=== PATIENT | male | born 1945 | race Caucasian/White ===

== ENCOUNTER 2019-07-06 21:33 | Inpatient (IN) ==
[2019-07-06] MEDS ORDERED: Ipratropium/Albuterol Neb 3 ML IH ONE (21:44)
[2019-07-06 22:15] LABS: Basophils % 0.2 %; Eosinophils # 0.1 K/mcL (0.0-0.6); Eosinophils % 1.1 %; Hematocrit 42.1 % (37.5-50.1); Hemoglobin 14.4 g/dL (12.9-16.9); Immature Granulocytes % 0.6 % (0-4); Lymphocytes # 0.7 K/mcL (0.6-4.6); Lymphocytes % 7.5 %; Mean Corpuscular HGB Conc 34.2 g/dL (31.6-35.5); Mean Corpuscular Hemoglobin 29.9 pg (28.0-33.3); Mean Corpuscular Volume 87.5 fL (83.0-100.0); Mean Platelet Volume 11.3 fL (9.4-12.4); Monocytes # 0.2 K/mcL (0.0-1.3); Monocytes % 1.7 %; Platelet Count 168 K/mcL (140-400); Red Blood Count 4.81 M/mcL (4.19-5.50); Segmented Neutrophils % 88.9 %
[2019-07-06 22:34] LABS: BUN/Creatinine Ratio 22 (6-26); Blood Urea Nitrogen 23 mg/dL (8-23); Calcium 9.5 mg/dL (8.6-10.3); Carbon Dioxide 22 mEq/L (23-29); Chloride 97 mEq/L (98-107); Glucose 185 mg/dL (70-105); Osmolality,Calculated 288 (280-300); Potassium 4.2 mEq/L (3.5-5.1); Sodium 135 mEq/L (136-145); eGFR For African Americans > 60 (> 60); eGFR For Non-African Americans > 60 (> 60)
[2019-07-06 22:35] LABS: Troponin I 0.03 ng/mL (< 0.04)
[2019-07-06] MEDS ORDERED: Isovue-370 500 ML BOTTLE IVP ONE (22:35)
[2019-07-06] MEDS ORDERED: cefTRIAXone 2,000 MG in Water for inj. (sterile) 20 ML IVP ONE (23:06)
[2019-07-06] MEDS ORDERED: Azithromycin 500 MG in D5% in Water 250 ML IVPB ONE (23:06)
[2019-07-07] MEDS ORDERED: Naloxone 0.4 MG/ML INJ IVP PRN (05:04)
[2019-07-07 05:24] LABS: Hematocrit 39.8 % (37.5-50.1); Hemoglobin 13.6 g/dL (12.9-16.9); Mean Corpuscular HGB Conc 34.2 g/dL (31.6-35.5); Mean Corpuscular Hemoglobin 29.9 pg (28.0-33.3); Mean Corpuscular Volume 87.5 fL (83.0-100.0); Mean Platelet Volume 11.3 fL (9.4-12.4); Platelet Count 173 K/mcL (140-400); Red Blood Count 4.55 M/mcL (4.19-5.50)
[2019-07-07 05:26] LABS: White Blood Count 14.9 K/mcL (4.3-11.1)
[2019-07-07 05:44] LABS: BUN/Creatinine Ratio 24 (6-26); Blood Urea Nitrogen 30 mg/dL (8-23); Calcium 9.4 mg/dL (8.6-10.3); Carbon Dioxide 23 mEq/L (23-29); Chloride 98 mEq/L (98-107); Glucose 225 mg/dL (70-105); Osmolality,Calculated 289 (280-300); Potassium 4.4 mEq/L (3.5-5.1); Sodium 133 mEq/L (136-145); eGFR For African Americans > 60 (> 60); eGFR For Non-African Americans 56 (> 60)
[2019-07-07] MEDS ORDERED: *HR* Heparin 5,000 UNIT/ML VIAL IVP ONE (06:23)
[2019-07-07] MEDS ORDERED: *HR* Heparin 5,000 UNIT/ML VIAL IVP PRN (06:23)
[2019-07-07 06:47] LABS: Hematocrit 38.9 % (37.5-50.1); Hemoglobin 13.2 g/dL (12.9-16.9); Mean Corpuscular HGB Conc 33.9 g/dL (31.6-35.5); Mean Corpuscular Hemoglobin 29.7 pg (28.0-33.3); Mean Corpuscular Volume 87.4 fL (83.0-100.0); Mean Platelet Volume 11.3 fL (9.4-12.4); Platelet Count 170 K/mcL (140-400); Red Blood Count 4.45 M/mcL (4.19-5.50); White Blood Count 15.4 K/mcL (4.3-11.1)
[2019-07-07 06:56] LABS: INR 1.2; Prothrombin Time 13.3 Seconds (9.4-12.1)
[2019-07-07] MEDS ORDERED: *HR* Dextrose 50 % in Water (Syg) 50 ML SYRINGE IVP PRN (07:32)
[2019-07-07] MEDS ORDERED: D5% in Water 1,000 ML IVC PRN (07:32)
[2019-07-07] MEDS ORDERED: Dextrose Gel 15 GM/37.5 ML TUBE PO PRN ×2 (07:32)
[2019-07-07] MEDS: Heparin 25,000 UNIT/250 ML D5W 25,000 UNIT/250 ML IV.SOLN IVC SCH (07:43)
[2019-07-07] MEDS ORDERED: Clindamycin 600 MG/50 ML 600 MG/50 ML IV.SOLN IVPB SCH (08:00)
[2019-07-07] MEDS ORDERED: Ringers Solution, Lactated 500 ML IVC ONE (13:33)
[2019-07-07] MEDS ORDERED: Aspirin 81 MG TAB.CHEW PO STA (13:41)
[2019-07-07] MEDS: Insulin LISPRO 300 UNITS/3 ML VIAL SQ SCH ×2 (13:59→17:43)
[2019-07-07] MEDS: Ampicillin/Sulbactam 3,000 MG in 0.9 % Sodium Chloride 100 ML IVPB SCH ×2 (14:00→18:03)
[2019-07-07] MEDS ORDERED: Acetaminophen 325 MG TABLET PO PRN (15:52)
[2019-07-07] MEDS ORDERED: Acetaminophen 325 MG TABLET PO SCH (16:00)
[2019-07-07] MEDS ORDERED: Cefepime HCl 2,000 MG in Water for inj. (sterile) 20 ML IVP SCH (18:00)
[2019-07-07] MEDS: *HR* Heparin 5,000 UNIT/ML VIAL IVP PRN (20:34)
[2019-07-08] MEDS: Insulin LISPRO 300 UNITS/3 ML VIAL SQ SCH ×5 (00:55→23:50)
[2019-07-08] MEDS: Ampicillin/Sulbactam 3,000 MG in 0.9 % Sodium Chloride 100 ML IVPB SCH ×4 (00:55→18:27)
[2019-07-08] MEDS: Aspirin 81 MG TAB.CHEW PO SCH (09:44)
[2019-07-08] MEDS: Metoprolol XL (24 HR) Succ 50 MG TAB.ER.24H PO SCH (09:45)
[2019-07-08 11:10] LABS: Hematocrit 30.9 % (37.5-50.1); Mean Corpuscular HGB Conc 34.3 g/dL (31.6-35.5); Mean Corpuscular Volume 87.5 fL (83.0-100.0); Platelet Count 133 K/mcL (140-400); Red Blood Count 3.53 M/mcL (4.19-5.50); Red Cell Distribution Width 14.6 % (11.5-14.5); White Blood Count 14.8 K/mcL (4.3-11.1)
[2019-07-08 11:13] LABS: Hemoglobin 10.6 g/dL (12.9-16.9)
[2019-07-08 11:32] LABS: Calcium 8.9 mg/dL (8.6-10.3); Magnesium 1.4 mg/dL (1.6-2.6); Potassium 5.1 mEq/L (3.5-5.1)
[2019-07-08 11:42] LABS: Troponin I 0.1 ng/mL (< 0.04)
[2019-07-08] MEDS: *HR* Heparin 5,000 UNIT/ML VIAL IVP PRN (12:52)
[2019-07-08] MEDS: Heparin 25,000 UNIT/250 ML D5W 25,000 UNIT/250 ML IV.SOLN IVC SCH (13:26)
[2019-07-09] MEDS: Insulin LISPRO 300 UNITS/3 ML VIAL SQ SCH ×3 (05:57→17:22)
[2019-07-09] MEDS: Heparin 25,000 UNIT/250 ML D5W 25,000 UNIT/250 ML IV.SOLN IVC SCH (05:58)
[2019-07-09] MEDS ORDERED: Ampicillin/Sulbactam 3,000 MG in 0.9 % Sodium Chloride 100 ML IVPB SCH (06:00)
[2019-07-09] MEDS ORDERED: 0.9 % Sodium Chloride 1,000 ML IVC ONE (08:10)
[2019-07-09] MEDS: Aspirin 81 MG TAB.CHEW PO SCH (08:45)
[2019-07-09] MEDS: Metoprolol XL (24 HR) Succ 50 MG TAB.ER.24H PO SCH (08:45)
[2019-07-09 09:27] LABS: Hematocrit 33.6 % (37.5-50.1); Hemoglobin 11.4 g/dL (12.9-16.9); Mean Corpuscular HGB Conc 33.9 g/dL (31.6-35.5); Mean Corpuscular Hemoglobin 29.8 pg (28.0-33.3); Mean Corpuscular Volume 87.7 fL (83.0-100.0); Platelet Count 127 K/mcL (140-400); Red Blood Count 3.83 M/mcL (4.19-5.50); Red Cell Distribution Width 14.5 % (11.5-14.5); White Blood Count 13.4 K/mcL (4.3-11.1)
[2019-07-09 09:40] LABS: Calcium 9.5 mg/dL (8.6-10.3); Potassium 5.3 mEq/L (3.5-5.1)
[2019-07-09] MEDS: 0.9 % Sodium Chloride 1,000 ML IVC SCH ×2 (11:23→22:37)
[2019-07-09 12:50] LABS: Bilirubin,Urine Negative (Negative); Blood,Urine Trace (Negative); Clarity,Urine Clear (Clear); Color,Urine Yellow (Yellow); Glucose,Urine (UA) 100 mg/dL (Normal); Ketones,Urine Negative (Negative); Leukocyte Esterase,Urine Negative (Negative); Nitrite,Urine Negative (Negative); PH,Urine 7.5 pH Units (5.0-8.0); Protein,Urine 100 mg/dL (Neg-Trace); Urobilinogen,Urine Normal (Normal)
[2019-07-09 12:53] LABS: Bacteria,Urine None Seen per hpf (None-Few); Hyaline Casts,Urine None Seen per lpf (None-Few); Squamous Epithelial Cell,Urine Many per lpf (None-Few); WBC,Urine 0-3 per hpf (0-3)
[2019-07-09 13:33] LABS: Albumin 3.6 g/dL (3.5-5.7); Albumin/Globulin Ratio 1.3 (1.1-2.2); Bilirubin,Direct 0.1 mg/dL (0.0-0.2); Bilirubin,Indirect 0.3 mg/dL (0.0-1.0); Bilirubin,Total 0.4 mg/dL (0.3-1.0); Globulin 2.7 g/dL (2.4-3.5); Total Protein 6.3 g/dL (6.4-8.9)
[2019-07-09 13:37] LABS: Sodium, Urine 97.1 mEq/L
[2019-07-09 15:14] LABS: Protein/Creatinine Ratio,Urine 2.9 mg/mg (0.00-0.20)
[2019-07-09 15:35] LABS: Potassium 5.3 mEq/L (3.5-5.1)
[2019-07-09] MEDS: *HR* Heparin 5,000 UNIT/ML VIAL SQ SCH (17:23)
[2019-07-10] MEDS: Insulin LISPRO 300 UNITS/3 ML VIAL SQ SCH ×5 (00:08→20:57)
[2019-07-10 04:31] LABS: Hematocrit 28.5 % (37.5-50.1); Mean Corpuscular HGB Conc 33.7 g/dL (31.6-35.5); Mean Corpuscular Hemoglobin 29.6 pg (28.0-33.3); Mean Platelet Volume 11.5 fL (9.4-12.4); Platelet Count 109 K/mcL (140-400); Red Blood Count 3.24 M/mcL (4.19-5.50); Red Cell Distribution Width 14.4 % (11.5-14.5); White Blood Count 8.3 K/mcL (4.3-11.1)
[2019-07-10 04:33] LABS: Hemoglobin 9.6 g/dL (12.9-16.9)
[2019-07-10 04:51] LABS: Calcium 8.8 mg/dL (8.6-10.3); Magnesium 2.3 mg/dL (1.6-2.6); Potassium 5.5 mEq/L (3.5-5.1)
[2019-07-10] MEDS: *HR* Heparin 5,000 UNIT/ML VIAL SQ SCH ×2 (05:38→18:48)
[2019-07-10] MEDS ORDERED: Ampicillin/Sulbactam 3,000 MG in 0.9 % Sodium Chloride Mini Bag 100 ML IVPB SCH (06:00)
[2019-07-10 08:38] LABS: Hepatitis B Surface Antibody > 850.00 mIU/mL
[2019-07-10 08:48] LABS: Hepatitis B Surface Antigen Nonreactive (Nonreactive)
[2019-07-10] MEDS: 0.9 % Sodium Chloride 1,000 ML IVC SCH (08:52)
[2019-07-10] MEDS: Metoprolol XL (24 HR) Succ 50 MG TAB.ER.24H PO SCH (08:53)
[2019-07-10] MEDS: Aspirin 81 MG TAB.CHEW PO SCH (08:53)
[2019-07-10 09:18] LABS: Hepatitis B Core IgM Nonreactive (Nonreactive)
[2019-07-10] MEDS ORDERED: 0.9 % Sodium Chloride 250 ML IVC PRN (10:14)
[2019-07-10] MEDS ORDERED: *HR* Heparin 10,000 UNIT/10 ML VIAL IV PRN (10:14)
[2019-07-10] MEDS ORDERED: 0.9 % Sodium Chloride 1,000 ML PRIME SCH (10:15)
[2019-07-10] MEDS ORDERED: *HR* Heparin 5,000 UNIT/ML VIAL ONE (10:49)
[2019-07-10] MEDS: Amoxicillin/Clavulanate 500 MG TABLET PO SCH (18:49)
[2019-07-11] MEDS: *HR* Heparin 5,000 UNIT/ML VIAL SQ SCH ×2 (05:08→17:29)
[2019-07-11 05:09] LABS: Basophils % 0.4 %; Eosinophils # 0.2 K/mcL (0.0-0.6); Eosinophils % 3.2 %; Hematocrit 30.5 % (37.5-50.1); Hemoglobin 10.4 g/dL (12.9-16.9); Immature Granulocytes % 0.9 % (0-4); Lymphocytes # 0.9 K/mcL (0.6-4.6); Lymphocytes % 15.4 %; Mean Corpuscular HGB Conc 34.1 g/dL (31.6-35.5); Mean Corpuscular Hemoglobin 30.1 pg (28.0-33.3); Mean Corpuscular Volume 88.2 fL (83.0-100.0); Mean Platelet Volume 11.4 fL (9.4-12.4); Monocytes # 0.4 K/mcL (0.0-1.3); Monocytes % 7.9 %; Platelet Count 105 K/mcL (140-400); Red Blood Count 3.46 M/mcL (4.19-5.50); Red Cell Distribution Width 14.2 % (11.5-14.5); Segmented Neutrophils % 72.2 %; White Blood Count 5.6 K/mcL (4.3-11.1)
[2019-07-11 05:28] LABS: Calcium 8.9 mg/dL (8.6-10.3); Potassium 5.1 mEq/L (3.5-5.1)
[2019-07-11] MEDS ORDERED: 0.9 % Sodium Chloride 250 ML IVC PRN (07:09)
[2019-07-11] MEDS: Metoprolol XL (24 HR) Succ 50 MG TAB.ER.24H PO SCH (08:33)
[2019-07-11] MEDS: Aspirin 81 MG TAB.CHEW PO SCH (08:33)
[2019-07-11] MEDS: Insulin LISPRO 300 UNITS/3 ML VIAL SQ SCH ×4 (08:35→22:11)
[2019-07-11] MEDS: Amoxicillin/Clavulanate 500 MG TABLET PO SCH (17:29)
[2019-07-12 04:32] LABS: Basophils % 0.3 %; Eosinophils # 0.2 K/mcL (0.0-0.6); Eosinophils % 2.9 %; Hematocrit 31.1 % (37.5-50.1); Hemoglobin 10.1 g/dL (12.9-16.9); Immature Granulocytes % 1.7 % (0-4); Lymphocytes # 1.2 K/mcL (0.6-4.6); Lymphocytes % 18.6 %; Mean Corpuscular HGB Conc 32.5 g/dL (31.6-35.5); Mean Corpuscular Hemoglobin 29.4 pg (28.0-33.3); Mean Corpuscular Volume 90.7 fL (83.0-100.0); Mean Platelet Volume 12.1 fL (9.4-12.4); Monocytes # 0.5 K/mcL (0.0-1.3); Monocytes % 7.9 %; Neutrophils # 4.3 K/mcL (1.6-8.9); Platelet Count 125 K/mcL (140-400); Red Blood Count 3.43 M/mcL (4.19-5.50); Red Cell Distribution Width 13.8 % (11.5-14.5); Segmented Neutrophils % 68.6 %; White Blood Count 6.3 K/mcL (4.3-11.1)
[2019-07-12 04:51] LABS: Potassium 4.3 mEq/L (3.5-5.1)
[2019-07-12] MEDS: *HR* Heparin 5,000 UNIT/ML VIAL SQ SCH ×2 (05:56→17:12)
[2019-07-12] MEDS: Metoprolol XL (24 HR) Succ 50 MG TAB.ER.24H PO SCH (08:40)
[2019-07-12] MEDS: Insulin LISPRO 300 UNITS/3 ML VIAL SQ SCH ×4 (08:40→20:45)
[2019-07-12] MEDS: Aspirin 81 MG TAB.CHEW PO SCH (08:40)
[2019-07-12] MEDS: Amoxicillin/Clavulanate 500 MG TABLET PO SCH (17:11)
[2019-07-13] MEDS: *HR* Heparin 5,000 UNIT/ML VIAL SQ SCH ×2 (06:13→18:44)
[2019-07-13 06:32] LABS: Basophils % 0.4 %; Eosinophils # 0.2 K/mcL (0.0-0.6); Eosinophils % 3.1 %; Hemoglobin 10.4 g/dL (12.9-16.9); Lymphocytes # 1.6 K/mcL (0.6-4.6); Mean Corpuscular HGB Conc 33.5 g/dL (31.6-35.5); Mean Corpuscular Hemoglobin 29.3 pg (28.0-33.3); Mean Corpuscular Volume 87.3 fL (83.0-100.0); Mean Platelet Volume 11.8 fL (9.4-12.4); Monocytes # 0.5 K/mcL (0.0-1.3); Monocytes % 7.4 %; Neutrophils # 4.2 K/mcL (1.6-8.9); Platelet Count 141 K/mcL (140-400); Red Blood Count 3.55 M/mcL (4.19-5.50); Red Cell Distribution Width 13.7 % (11.5-14.5); Segmented Neutrophils % 63.1 %; White Blood Count 6.7 K/mcL (4.3-11.1)
[2019-07-13 07:03] LABS: Calcium 9.4 mg/dL (8.6-10.3); Potassium 4.7 mEq/L (3.5-5.1)
[2019-07-13 08:56] LABS: Estimated Average Glucose 137 mg/dl
[2019-07-13] MEDS: Metoprolol XL (24 HR) Succ 50 MG TAB.ER.24H PO SCH (09:51)
[2019-07-13] MEDS: Insulin LISPRO 300 UNITS/3 ML VIAL SQ SCH ×3 (09:52→18:42)
[2019-07-13] MEDS: Aspirin 81 MG TAB.CHEW PO SCH (09:52)
[2019-07-13] MEDS: Amoxicillin/Clavulanate 500 MG TABLET PO SCH (18:43)
[2019-07-13 20:42] VITALS: BP 171/83
== END 2019-07-13 21:46 | disposition home or self-care (01) | DRG 871 ==
LOC: 3ANU 21:33 → EMEROOARM 21:33 → SUATTDRO 07-07 00:46 → 3ANU 07-07 01:18 → SUATTDRO 07-07 14:34
PROVIDERS: ADMIT Family Medicine; ATTEND Student in an Organized Health Care Education/Training Program

== ENCOUNTER 2020-11-12 22:48 | Inpatient (IN) ==
[2020-11-12] MEDS ORDERED: Isovue-370 500 ML BOTTLE IVP ONE (22:54)
[2020-11-13 00:10] LABS: BUN/Creatinine Ratio 68 (6-26); Blood Urea Nitrogen 44 mg/dL (8-23); Calcium 9.4 mg/dL (8.6-10.3); Carbon Dioxide 23 mEq/L (23-29); Chloride 86 mEq/L (98-107); Glucose 245 mg/dL (70-105); Osmolality,Calculated 277 (280-300); Potassium 4.1 mEq/L (3.5-5.1); Sodium 124 mEq/L (136-145); Troponin I < 0.03 ng/mL (< 0.04); eGFR For African Americans > 60 (> 60); eGFR For Non-African Americans > 60 (> 60)
[2020-11-13 00:43] LABS: Basophils % 0.3 %; Eosinophils # 0.1 K/mcL (0.0-0.6); Eosinophils % 0.7 %; Hematocrit 40.5 % (37.5-50.1); Hemoglobin 13.4 g/dL (12.9-16.9); Immature Granulocytes % 1.5 % (0-4); Lymphocytes # 1.1 K/mcL (0.6-4.6); Mean Corpuscular HGB Conc 33.1 g/dL (31.6-35.5); Mean Corpuscular Hemoglobin 28.8 pg (28.0-33.3); Mean Corpuscular Volume 87.1 fL (83.0-100.0); Monocytes % 7.3 %; Neutrophils # 11.2 K/mcL (1.6-8.9); Platelet Count 318 K/mcL (140-400); Red Blood Count 4.65 M/mcL (4.19-5.50); Red Cell Distribution Width 13.5 % (11.5-14.5); Segmented Neutrophils % 82.2 %; White Blood Count 13.6 K/mcL (4.3-11.1)
[2020-11-13] MEDS ORDERED: cefTRIAXone 1,000 MG in 0.9 % Sodium Chloride Mini Bag 100 ML IVPB ONE (01:23)
[2020-11-13] MEDS ORDERED: Azithromycin 500 MG in 0.9 % Sodium Chloride 250 ML IVPB ONE (01:23)
[2020-11-13] MEDS ORDERED: Naloxone 0.4 MG/ML INJ IVP PRN (02:15)
[2020-11-13] MEDS ORDERED: Ondansetron 4 MG/2 ML VIAL IVP PRN (02:15)
[2020-11-13] MEDS ORDERED: 0.9 % Sodium Chloride 1,000 ML IVC SCH (02:15)
[2020-11-13] MEDS ORDERED: D5% in Water 1,000 ML IVC PRN (02:48)
[2020-11-13] MEDS ORDERED: *HR* Dextrose 50 % in Water (Vial) 50 ML VIAL IVP PRN (02:48)
[2020-11-13] MEDS ORDERED: Dextrose Gel 15 GM/37.5 ML TUBE PO PRN ×2 (02:48)
[2020-11-13 03:01] LABS: Adenovirus Not Detected (Not Detect); Coronavirus 229E Not Detected (Not Detect); Coronavirus HKU1 Not Detected (Not Detect); Coronavirus NL63 Not Detected (Not Detect); Coronavirus OC43 Not Detected (Not Detect)
[2020-11-13] MEDS ORDERED: Ipratropium/Albuterol Neb 3 ML IH PRN (03:01)
[2020-11-13 03:02] LABS: Bordetella Pertussis Not Detected (Not Detect); Chlamydophila pneumoniae Not Detected (Not Detect); Human Metapneumovirus Not Detected (Not Detect); Human Rhinovirus/Enterovirus Not Detected (Not Detect); Influenza A Subtype 2009 H1 Not Detected (Not Detect); Influenza B Not Detected (Not Detect); Mycoplasma pneumoniae Not Detected (Not Detect); Parainfluenza Virus 1 Not Detected (Not Detect); Parainfluenza Virus 2 Not Detected (Not Detect); Parainfluenza Virus 3 Not Detected (Not Detect); Parainfluenza Virus 4 Not Detected (Not Detect); Respiratory Syncytial Virus Not Detected (Not Detect); SARS-CoV-2 Not Detected (Not Detect)
[2020-11-13 04:47] LABS: Hemoglobin 12.7 g/dL (12.9-16.9); Mean Corpuscular HGB Conc 33.4 g/dL (31.6-35.5); Mean Corpuscular Hemoglobin 29.7 pg (28.0-33.3); Mean Corpuscular Volume 88.8 fL (83.0-100.0); Mean Platelet Volume 11.4 fL (9.4-12.4); Platelet Count 288 K/mcL (140-400); Red Blood Count 4.28 M/mcL (4.19-5.50); Red Cell Distribution Width 13.4 % (11.5-14.5); White Blood Count 12.3 K/mcL (4.3-11.1)
[2020-11-13 04:56] LABS: BUN/Creatinine Ratio 69 (6-26); Blood Urea Nitrogen 43 mg/dL (8-23); Calcium 9.5 mg/dL (8.6-10.3); Carbon Dioxide 27 mEq/L (23-29); Chloride 88 mEq/L (98-107); Glucose 175 mg/dL (70-105); Osmolality,Calculated 275 (280-300); Potassium 3.9 mEq/L (3.5-5.1); Sodium 125 mEq/L (136-145); eGFR For African Americans > 60 (> 60); eGFR For Non-African Americans > 60 (> 60)
[2020-11-13] MEDS: MetroNIDAZOLE 500 MG/100 ML 500 MG/100 ML BAG IVPB SCH ×3 (05:12→17:07)
[2020-11-13] MEDS: *HR* Heparin 5,000 UNIT/ML VIAL SQ SCH ×3 (05:12→20:16)
[2020-11-13] MEDS: Insulin DETEMIR 100 UNIT/ML X5UNITS SUBQ SCH ×2 (05:13→20:16)
[2020-11-13] MEDS: Insulin LISPRO 300 UNITS/3 ML VIAL SUBQ SCH ×4 (07:05→23:54)
[2020-11-13] MEDS ORDERED: *HR* OxyCODONE Immed Rel 5 MG TABLET GTUBE PRN (11:09)
[2020-11-13] MEDS ORDERED: [UNRECOGNIZED DRUG - OTHER] TP SCH (13:00)
[2020-11-13] MEDS ORDERED: ALOE VERA TP SCH (13:00)
[2020-11-13] MEDS ORDERED: COLLAGEN TP SCH (13:00)
[2020-11-13] MEDS ORDERED: Aspirin Enteric Coated 81 MG Tablet PO SCH (13:00)
[2020-11-13] MEDS: Valsartan 160 MG TABLET GTUBE SCH (13:23)
[2020-11-13] MEDS: Aspirin 81 MG TAB.CHEW GTUBE SCH (13:24)
[2020-11-13] MEDS: Doxycycline 100 MG in 0.9 % Sodium Chloride Mini Bag 100 ML IVPB SCH (17:07)
[2020-11-13] MEDS: Glycopyrrolate 1 MG TABLET GTUBE SCH (20:16)
[2020-11-14] MEDS: cefTRIAXone 1,000 MG in 0.9 % Sodium Chloride Mini Bag 100 ML IVPB SCH (02:20)
[2020-11-14] MEDS: MetroNIDAZOLE 500 MG/100 ML 500 MG/100 ML BAG IVPB SCH ×3 (02:20→22:11)
[2020-11-14] MEDS ORDERED: *HR* Metoprolol 5 MG/5 ML VIAL IVP ONE (04:18)
[2020-11-14] MEDS: Doxycycline 100 MG in 0.9 % Sodium Chloride Mini Bag 100 ML IVPB SCH ×2 (05:28→17:52)
[2020-11-14] MEDS: *HR* Heparin 5,000 UNIT/ML VIAL SQ SCH ×2 (05:29→14:05)
[2020-11-14 05:40] LABS: Immature Granulocytes % 1.5 % (0-4); Mean Corpuscular Hemoglobin 28.6 pg (28.0-33.3)
[2020-11-14 05:42] LABS: Basophils # 0.1 K/mcL (0.0-0.2); Basophils % 0.5 %; Eosinophils # 0.1 K/mcL (0.0-0.6); Eosinophils % 0.6 %; Hemoglobin 12.8 g/dL (12.9-16.9); Immature Platelets 12.1 % (1.1-6.1); Lymphocytes # 1.4 K/mcL (0.6-4.6); Lymphocytes % 10.4 %; Mean Corpuscular HGB Conc 33.7 g/dL (31.6-35.5); Mean Corpuscular Volume 84.8 fL (83.0-100.0); Mean Platelet Volume 12.4 fL (9.4-12.4); Monocytes % 7.8 %; Platelet Count 260 K/mcL (140-400); Red Blood Count 4.48 M/mcL (4.19-5.50); Red Cell Distribution Width 13.5 % (11.5-14.5); Segmented Neutrophils % 79.2 %; White Blood Count 13.3 K/mcL (4.3-11.1)
[2020-11-14 05:45] LABS: Neutrophils # 10.5 K/mcL (1.6-8.9)
[2020-11-14] MEDS: Insulin LISPRO 300 UNITS/3 ML VIAL SUBQ SCH ×4 (06:05→22:36)
[2020-11-14 06:06] LABS: BUN/Creatinine Ratio 52 (6-26); Blood Urea Nitrogen 33 mg/dL (8-23); Calcium 9.2 mg/dL (8.6-10.3); Carbon Dioxide 26 mEq/L (23-29); Chloride 92 mEq/L (98-107); Glucose 328 mg/dL (70-105); Magnesium 1.3 mg/dL (1.6-2.6); Osmolality,Calculated 286 (280-300); Phosphorous 2.7 mg/dL (2.7-4.5); Potassium 4.2 mEq/L (3.5-5.1); Sodium 128 mEq/L (136-145); eGFR For African Americans > 60 (> 60); eGFR For Non-African Americans > 60 (> 60)
[2020-11-14] MEDS ORDERED: *HR* Labetalol 20 MG/4 ML SYRINGE IVP ONE (07:22)
[2020-11-14] MEDS ORDERED: Perflutren Lipid Microsphere 1.3 ML in 0.9 % Sodium Chloride 8.7 ML IVP PRN (07:28)
[2020-11-14] MEDS: Glycopyrrolate 1 MG TABLET GTUBE SCH ×2 (08:19→22:10)
[2020-11-14] MEDS: Aspirin 81 MG TAB.CHEW GTUBE SCH (08:19)
[2020-11-14] MEDS: Valsartan 160 MG TABLET GTUBE SCH (08:20)
[2020-11-14] MEDS ORDERED: Azithromycin 500 MG in 0.9 % Sodium Chloride 250 ML IVPB SCH (09:00)
[2020-11-14] MEDS ORDERED: Insulin DETEMIR 100 UNIT/ML X5UNITS SUBQ ONE ×2 (15:35→21:00)
[2020-11-14] MEDS: DilTIAZem 50 MG/50 ML IV.SOLN IVC SCH (17:56)
[2020-11-14] MEDS: *HR* Enoxaparin 80 MG/0.8 ML SYRINGE SQ SCH (18:37)
[2020-11-15] MEDS: DilTIAZem 50 MG/50 ML IV.SOLN IVC SCH ×2 (00:28→06:46)
[2020-11-15] MEDS: Insulin LISPRO 300 UNITS/3 ML VIAL SUBQ SCH ×6 (00:43→23:31)
[2020-11-15 01:45] LABS: Basophils # 0.1 K/mcL (0.0-0.2); Basophils % 0.5 %; Eosinophils % 0.3 %; Hematocrit 37.1 % (37.5-50.1); Immature Granulocytes % 1.4 % (0-4); Lymphocytes % 7.6 %; Mean Corpuscular HGB Conc 32.3 g/dL (31.6-35.5); Mean Corpuscular Hemoglobin 28.8 pg (28.0-33.3); Mean Corpuscular Volume 89.2 fL (83.0-100.0); Mean Platelet Volume 11.4 fL (9.4-12.4); Monocytes # 0.8 K/mcL (0.0-1.3); Monocytes % 6.3 %; Neutrophils # 10.5 K/mcL (1.6-8.9); Platelet Count 273 K/mcL (140-400); Red Blood Count 4.16 M/mcL (4.19-5.50); Red Cell Distribution Width 13.8 % (11.5-14.5); Segmented Neutrophils % 83.9 %; White Blood Count 12.5 K/mcL (4.3-11.1)
[2020-11-15 02:04] LABS: BUN/Creatinine Ratio 51 (6-26); Blood Urea Nitrogen 33 mg/dL (8-23); Carbon Dioxide 27 mEq/L (23-29); Chloride 94 mEq/L (98-107); Glucose 415 mg/dL (70-105); Magnesium 1.7 mg/dL (1.6-2.6); Osmolality,Calculated 297 (280-300); Phosphorous 2.7 mg/dL (2.7-4.5); Sodium 131 mEq/L (136-145); eGFR For African Americans > 60 (> 60); eGFR For Non-African Americans > 60 (> 60)
[2020-11-15] MEDS: cefTRIAXone 1,000 MG in 0.9 % Sodium Chloride Mini Bag 100 ML IVPB SCH (02:34)
[2020-11-15] MEDS: MetroNIDAZOLE 500 MG/100 ML 500 MG/100 ML BAG IVPB SCH ×3 (03:02→22:36)
[2020-11-15] MEDS: *HR* Enoxaparin 80 MG/0.8 ML SYRINGE SQ SCH (06:15)
[2020-11-15] MEDS: Doxycycline 100 MG in 0.9 % Sodium Chloride Mini Bag 100 ML IVPB SCH ×2 (06:17→17:36)
[2020-11-15] MEDS: Glycopyrrolate 1 MG TABLET GTUBE SCH ×2 (08:05→22:34)
[2020-11-15] MEDS: Aspirin 81 MG TAB.CHEW GTUBE SCH (08:05)
[2020-11-15] MEDS: Valsartan 160 MG TABLET GTUBE SCH (08:05)
[2020-11-15] MEDS: Insulin DETEMIR 100 UNIT/ML X5UNITS SUBQ SCH ×2 (13:30→23:32)
[2020-11-15] MEDS ORDERED: *HR* Rivaroxaban 10 MG TABLET PO SCH (17:00)
[2020-11-15] MEDS ORDERED: Insulin DETEMIR 100 UNIT/ML X5UNITS SUBQ SCH (21:00)
[2020-11-15] MEDS ORDERED: Metoprolol 100 MG TABLET GTUBE SCH (21:00)
[2020-11-16] MEDS: Insulin LISPRO 300 UNITS/3 ML VIAL SUBQ SCH ×6 (03:40→20:58)
[2020-11-16] MEDS: cefTRIAXone 1,000 MG in 0.9 % Sodium Chloride Mini Bag 100 ML IVPB SCH (04:35)
[2020-11-16] MEDS: MetroNIDAZOLE 500 MG/100 ML 500 MG/100 ML BAG IVPB SCH ×3 (05:10→18:40)
[2020-11-16 05:17] LABS: Basophils % 0.3 %; Eosinophils % 0.3 %; Hematocrit 34.7 % (37.5-50.1); Hemoglobin 11.1 g/dL (12.9-16.9); Immature Granulocytes % 1.5 % (0-4); Lymphocytes # 1.3 K/mcL (0.6-4.6); Lymphocytes % 9.3 %; Mean Corpuscular Volume 90.6 fL (83.0-100.0); Mean Platelet Volume 11.3 fL (9.4-12.4); Monocytes # 0.9 K/mcL (0.0-1.3); Monocytes % 6.6 %; Platelet Count 289 K/mcL (140-400); Red Blood Count 3.83 M/mcL (4.19-5.50); Red Cell Distribution Width 14.1 % (11.5-14.5); White Blood Count 13.4 K/mcL (4.3-11.1)
[2020-11-16 05:38] LABS: BUN/Creatinine Ratio 40 (6-26); Blood Urea Nitrogen 35 mg/dL (8-23); Calcium 9.4 mg/dL (8.6-10.3); Carbon Dioxide 31 mEq/L (23-29); Chloride 100 mEq/L (98-107); Glucose 254 mg/dL (70-105); Magnesium 1.8 mg/dL (1.6-2.6); Osmolality,Calculated 305 (280-300); Phosphorous 3.5 mg/dL (2.7-4.5); Potassium 4.1 mEq/L (3.5-5.1); Sodium 139 mEq/L (136-145); eGFR For African Americans > 60 (> 60); eGFR For Non-African Americans > 60 (> 60)
[2020-11-16] MEDS: Doxycycline 100 MG in 0.9 % Sodium Chloride Mini Bag 100 ML IVPB SCH ×2 (06:41→16:53)
[2020-11-16] MEDS: Insulin DETEMIR 100 UNIT/ML X5UNITS SUBQ SCH ×2 (08:24→21:02)
[2020-11-16] MEDS: Glycopyrrolate 1 MG TABLET GTUBE SCH ×2 (08:24→21:02)
[2020-11-16] MEDS: Valsartan 160 MG TABLET GTUBE SCH (08:25)
[2020-11-16] MEDS ORDERED: 0.9 % Sodium Chloride 250 ML IVC ONE (09:53)
[2020-11-17] MEDS: Insulin LISPRO 300 UNITS/3 ML VIAL SUBQ SCH ×6 (00:41→20:57)
[2020-11-17 02:10] LABS: Basophils % 0.4 %; Eosinophils # 0.1 K/mcL (0.0-0.6); Eosinophils % 1.4 %; Hematocrit 34.9 % (37.5-50.1); Hemoglobin 10.9 g/dL (12.9-16.9); Immature Granulocytes % 1.3 % (0-4); Lymphocytes # 1.3 K/mcL (0.6-4.6); Lymphocytes % 14.2 %; Mean Corpuscular HGB Conc 31.2 g/dL (31.6-35.5); Mean Corpuscular Hemoglobin 28.9 pg (28.0-33.3); Mean Corpuscular Volume 92.6 fL (83.0-100.0); Mean Platelet Volume 11.5 fL (9.4-12.4); Monocytes # 0.5 K/mcL (0.0-1.3); Monocytes % 5.9 %; Neutrophils # 6.9 K/mcL (1.6-8.9); Platelet Count 249 K/mcL (140-400); Red Blood Count 3.77 M/mcL (4.19-5.50); Red Cell Distribution Width 14.2 % (11.5-14.5); Segmented Neutrophils % 76.8 %
[2020-11-17] MEDS: cefTRIAXone 1,000 MG in 0.9 % Sodium Chloride Mini Bag 100 ML IVPB SCH (02:23)
[2020-11-17] MEDS: MetroNIDAZOLE 500 MG/100 ML 500 MG/100 ML BAG IVPB SCH ×3 (02:24→18:47)
[2020-11-17 02:26] LABS: BUN/Creatinine Ratio 46 (6-26); Blood Urea Nitrogen 40 mg/dL (8-23); Calcium 9.1 mg/dL (8.6-10.3); Carbon Dioxide 29 mEq/L (23-29); Chloride 102 mEq/L (98-107); Glucose 256 mg/dL (70-105); Magnesium 1.7 mg/dL (1.6-2.6); Osmolality,Calculated 305 (280-300); Phosphorous 3.3 mg/dL (2.7-4.5); Sodium 138 mEq/L (136-145); eGFR For African Americans > 60 (> 60); eGFR For Non-African Americans > 60 (> 60)
[2020-11-17] MEDS: Doxycycline 100 MG in 0.9 % Sodium Chloride Mini Bag 100 ML IVPB SCH ×2 (05:03→17:43)
[2020-11-17] MEDS: Insulin DETEMIR 100 UNIT/ML X5UNITS SUBQ SCH ×2 (09:18→20:57)
[2020-11-17] MEDS: Glycopyrrolate 1 MG TABLET GTUBE SCH ×2 (09:19→20:55)
[2020-11-17] MEDS: Valsartan 160 MG TABLET GTUBE SCH (09:20)
[2020-11-18] MEDS: Insulin LISPRO 300 UNITS/3 ML VIAL SUBQ SCH ×7 (00:33→23:36)
[2020-11-18] MEDS: cefTRIAXone 1,000 MG in 0.9 % Sodium Chloride Mini Bag 100 ML IVPB SCH (01:10)
[2020-11-18] MEDS: MetroNIDAZOLE 500 MG/100 ML 500 MG/100 ML BAG IVPB SCH ×2 (01:48→12:51)
[2020-11-18] MEDS: Doxycycline 100 MG in 0.9 % Sodium Chloride Mini Bag 100 ML IVPB SCH (06:23)
[2020-11-18 06:35] LABS: Basophils # 0.1 K/mcL (0.0-0.2); Basophils % 0.5 %; Eosinophils # 0.1 K/mcL (0.0-0.6); Eosinophils % 1.1 %; Hematocrit 38.7 % (37.5-50.1); Immature Granulocytes % 1.6 % (0-4); Lymphocytes # 1.3 K/mcL (0.6-4.6); Lymphocytes % 12.8 %; Mean Corpuscular HGB Conc 32.3 g/dL (31.6-35.5); Mean Corpuscular Hemoglobin 29.2 pg (28.0-33.3); Mean Corpuscular Volume 90.4 fL (83.0-100.0); Mean Platelet Volume 11.1 fL (9.4-12.4); Monocytes # 0.6 K/mcL (0.0-1.3); Monocytes % 5.6 %; Neutrophils # 8.2 K/mcL (1.6-8.9); Platelet Count 285 K/mcL (140-400); Red Blood Count 4.28 M/mcL (4.19-5.50); Segmented Neutrophils % 78.4 %; White Blood Count 10.5 K/mcL (4.3-11.1)
[2020-11-18 06:42] LABS: Hemoglobin 12.5 g/dL (12.9-16.9)
[2020-11-18 07:08] LABS: BUN/Creatinine Ratio 45 (6-26); Blood Urea Nitrogen 30 mg/dL (8-23); Calcium 9.2 mg/dL (8.6-10.3); Carbon Dioxide 26 mEq/L (23-29); Chloride 99 mEq/L (98-107); Glucose 278 mg/dL (70-105); Magnesium 1.4 mg/dL (1.6-2.6); Osmolality,Calculated 296 (280-300); Phosphorous 2.8 mg/dL (2.7-4.5); Potassium 3.8 mEq/L (3.5-5.1); Sodium 135 mEq/L (136-145); eGFR For African Americans > 60 (> 60); eGFR For Non-African Americans > 60 (> 60)
[2020-11-18] MEDS: Valsartan 160 MG TABLET GTUBE SCH (07:35)
[2020-11-18] MEDS: Glycopyrrolate 1 MG TABLET GTUBE SCH ×2 (07:36→20:30)
[2020-11-18] MEDS: Insulin DETEMIR 100 UNIT/ML X5UNITS SUBQ SCH ×2 (08:02→20:56)
[2020-11-19] MEDS: Insulin LISPRO 300 UNITS/3 ML VIAL SUBQ SCH ×6 (04:33→22:55)
[2020-11-19 05:30] LABS: Basophils # 0.1 K/mcL (0.0-0.2); Basophils % 0.9 %; Eosinophils # 0.2 K/mcL (0.0-0.6); Eosinophils % 1.3 %; Hematocrit 38.9 % (37.5-50.1); Hemoglobin 12.3 g/dL (12.9-16.9); Immature Granulocytes % 2.6 % (0-4); Lymphocytes # 2.3 K/mcL (0.6-4.6); Mean Corpuscular HGB Conc 31.6 g/dL (31.6-35.5); Mean Corpuscular Hemoglobin 28.7 pg (28.0-33.3); Mean Corpuscular Volume 90.7 fL (83.0-100.0); Mean Platelet Volume 10.8 fL (9.4-12.4); Monocytes # 0.8 K/mcL (0.0-1.3); Monocytes % 6.5 %; Platelet Count 272 K/mcL (140-400); Red Blood Count 4.29 M/mcL (4.19-5.50); Red Cell Distribution Width 14.3 % (11.5-14.5); Segmented Neutrophils % 68.7 %; White Blood Count 11.6 K/mcL (4.3-11.1)
[2020-11-19 05:52] LABS: BUN/Creatinine Ratio 49 (6-26); Blood Urea Nitrogen 33 mg/dL (8-23); Calcium 9.3 mg/dL (8.6-10.3); Carbon Dioxide 28 mEq/L (23-29); Chloride 99 mEq/L (98-107); Glucose 117 mg/dL (70-105); Magnesium 1.9 mg/dL (1.6-2.6); Osmolality,Calculated 292 (280-300); Phosphorous 3.2 mg/dL (2.7-4.5); Potassium 3.8 mEq/L (3.5-5.1); Sodium 137 mEq/L (136-145); eGFR For African Americans > 60 (> 60); eGFR For Non-African Americans > 60 (> 60)
[2020-11-19] MEDS: Glycopyrrolate 1 MG TABLET GTUBE SCH ×2 (08:26→21:19)
[2020-11-19] MEDS: Insulin DETEMIR 100 UNIT/ML X5UNITS SUBQ SCH (08:27)
[2020-11-19] MEDS: Valsartan 160 MG TABLET GTUBE SCH (08:27)
[2020-11-19] MEDS ORDERED: *HR* Labetalol 20 MG/4 ML SYRINGE IVP ONE (11:12)
[2020-11-19] MEDS: amLODIPine 5 MG TABLET GTUBE SCH (11:20)
[2020-11-19] MEDS ORDERED: Oxymetazoline Nasal SPRAY BOTTLE NS ONE (15:12)
[2020-11-19] MEDS ORDERED: Lidocaine/EPI 1:100k 1% 50 ML VIAL ONE (15:12)
[2020-11-19] MEDS ORDERED: *HR* FentaNYL (PF) 100 MCG/2 ML VIAL ONE (15:19)
[2020-11-19] MEDS ORDERED: *HR* Propofol 200 MG/20 ML VIAL IVP ONE (15:20)
[2020-11-19] MEDS ORDERED: *HR* Midazolam HCl 2 MG/2 ML VIAL ONE ×2 (15:20→17:16)
[2020-11-19] MEDS ORDERED: *HR* Rocuronium Bromide 50 MG/5 ML VIAL ONE (16:07)
[2020-11-19] MEDS ORDERED: Lidocaine -MPF 2% 2 ML VIAL ONE (16:07)
[2020-11-19] MEDS ORDERED: Ondansetron 4 MG/2 ML VIAL ONE (16:07)
[2020-11-19] MEDS ORDERED: *HR* Vasopressin 20 UNIT/ML VIAL ONE (16:58)
[2020-11-19] MEDS ORDERED: Sugammadex Sodium 200 MG/2 ML VIAL IV ONE (17:17)
[2020-11-19] MEDS ORDERED: EPHEDrine 50 MG/ML VIAL ONE (17:20)
[2020-11-19] MEDS ORDERED: Ringers Solution, Lactated 1,000 ML ONE (17:47)
[2020-11-19] MEDS ORDERED: Scopolamine Patch 1.5 MG PATCH.TD72 TD ONE (20:46)
[2020-11-20] MEDS: Insulin LISPRO 300 UNITS/3 ML VIAL SUBQ SCH ×5 (04:17→22:03)
[2020-11-20 04:21] LABS: ABG Base Excess 5 mEq/L (-2 to 3); ABG HCO3 28 mEq/L (21-27); ABG Oxygen Saturation 97 % (95-98); ABG PCO2 35 mmHg (35-45); ABG PH 7.52 pH Units (7.32-7.45); ABG PO2 76 mmHg (85-104); ABG TCO2 29 mEq/L (20-26); Blood Gas Modality ASSIST CONTROL; Blood Gas VT 460 cc
[2020-11-20] MEDS: Glycopyrrolate 1 MG TABLET GTUBE SCH ×2 (08:08→22:09)
[2020-11-20] MEDS: Valsartan 160 MG TABLET GTUBE SCH (08:08)
[2020-11-20 09:47] LABS: BUN/Creatinine Ratio 44 (6-26); Blood Urea Nitrogen 41 mg/dL (8-23); Calcium 9.4 mg/dL (8.6-10.3); Carbon Dioxide 26 mEq/L (23-29); Chloride 101 mEq/L (98-107); Glucose 169 mg/dL (70-105); Osmolality,Calculated 302 (280-300); Potassium 3.9 mEq/L (3.5-5.1); Sodium 139 mEq/L (136-145); eGFR For African Americans > 60 (> 60); eGFR For Non-African Americans > 60 (> 60)
[2020-11-20] MEDS ORDERED: Ringers Solution, Lactated 1,000 ML IVC ONE (10:00)
[2020-11-20] MEDS: amLODIPine 5 MG TABLET GTUBE SCH (10:20)
[2020-11-20] MEDS ORDERED: Artificial Tears SOLN 15 ML BOTTLE BOTH EYES PRN (10:39)
[2020-11-20] MEDS ORDERED: Artificial Tears SOLN 15 ML BOTTLE BOTH EYES SCH (12:00)
[2020-11-20 12:40] LABS: Basophils % 0.3 %; Eosinophils # 0.1 K/mcL (0.0-0.6); Eosinophils % 0.4 %; Hematocrit 36.1 % (37.5-50.1); Hemoglobin 11.3 g/dL (12.9-16.9); Lymphocytes # 1.6 K/mcL (0.6-4.6); Lymphocytes % 13.4 %; Mean Corpuscular HGB Conc 31.3 g/dL (31.6-35.5); Mean Corpuscular Hemoglobin 28.3 pg (28.0-33.3); Mean Corpuscular Volume 90.5 fL (83.0-100.0); Mean Platelet Volume 11.4 fL (9.4-12.4); Monocytes # 0.7 K/mcL (0.0-1.3); Monocytes % 5.8 %; Neutrophils # 9.2 K/mcL (1.6-8.9); Platelet Count 269 K/mcL (140-400); Red Blood Count 3.99 M/mcL (4.19-5.50); Red Cell Distribution Width 14.5 % (11.5-14.5); Segmented Neutrophils % 78.1 %; White Blood Count 11.8 K/mcL (4.3-11.1)
[2020-11-20] MEDS ORDERED: *HR* Heparin 5,000 UNIT/ML VIAL SQ SCH (14:00)
[2020-11-20] MEDS ORDERED: Albumin 25% 25gram/100mL 25 GM/100 ML IV.SOLN IVPB ONE (14:19)
[2020-11-20] MEDS ORDERED: Perflutren Lipid Microsphere 1.3 ML in 0.9 % Sodium Chloride 8.7 ML IVP PRN (15:39)
[2020-11-20] MEDS ORDERED: *HR* Dextrose 50 % in Water (Vial) 50 ML VIAL IVP PRN (15:39)
[2020-11-20] MEDS ORDERED: Ipratropium/Albuterol Neb 3 ML IH PRN (15:39)
[2020-11-20] MEDS ORDERED: D5% in Water 1,000 ML IVC PRN (15:39)
[2020-11-20] MEDS ORDERED: Naloxone 0.4 MG/ML INJ IVP PRN (15:39)
[2020-11-20] MEDS ORDERED: Dextrose Gel 15 GM/37.5 ML TUBE PO PRN ×2 (15:39)
[2020-11-20] MEDS ORDERED: *HR* OxyCODONE Immed Rel 5 MG TABLET GTUBE PRN (15:39)
[2020-11-20] MEDS ORDERED: Ondansetron 4 MG/2 ML VIAL IVP PRN (15:39)
[2020-11-20] MEDS ORDERED: Chlorhexidine Rinse 15 ML MOUTHWASH MM SCH (21:00)
[2020-11-20] MEDS: *HR* Heparin 5,000 UNIT/ML VIAL SQ SCH (21:42)
[2020-11-20] MEDS: Chlorhexidine Rinse 15 ML MOUTHWASH MM SCH (21:43)
[2020-11-21] MEDS: Insulin LISPRO 300 UNITS/3 ML VIAL SUBQ SCH ×7 (00:13→23:43)
[2020-11-21 01:26] LABS: Hematocrit 31.2 % (37.5-50.1); Mean Corpuscular HGB Conc 32.1 g/dL (31.6-35.5); Mean Corpuscular Hemoglobin 29.2 pg (28.0-33.3); Mean Corpuscular Volume 91.2 fL (83.0-100.0); Mean Platelet Volume 11.6 fL (9.4-12.4); Platelet Count 231 K/mcL (140-400); Red Blood Count 3.42 M/mcL (4.19-5.50); Red Cell Distribution Width 14.5 % (11.5-14.5); White Blood Count 9.8 K/mcL (4.3-11.1)
[2020-11-21 01:46] LABS: BUN/Creatinine Ratio 42 (6-26); Blood Urea Nitrogen 47 mg/dL (8-23); Calcium 9.4 mg/dL (8.6-10.3); Carbon Dioxide 28 mEq/L (23-29); Chloride 101 mEq/L (98-107); Glucose 221 mg/dL (70-105); Osmolality,Calculated 305 (280-300); Potassium 3.5 mEq/L (3.5-5.1); Sodium 138 mEq/L (136-145); eGFR For African Americans > 60 (> 60); eGFR For Non-African Americans > 60 (> 60)
[2020-11-21] MEDS: *HR* Heparin 5,000 UNIT/ML VIAL SQ SCH ×3 (06:00→20:09)
[2020-11-21] MEDS: Glycopyrrolate 1 MG TABLET GTUBE SCH ×2 (08:11→20:09)
[2020-11-21] MEDS: Valsartan 160 MG TABLET GTUBE SCH (08:11)
[2020-11-21] MEDS: amLODIPine 5 MG TABLET GTUBE SCH (08:11)
[2020-11-21] MEDS: Chlorhexidine Rinse 15 ML MOUTHWASH MM SCH ×2 (08:12→20:11)
[2020-11-21] MEDS ORDERED: Saliva Stimulant 44.3ml BOTTLE PO PRN (21:03)
[2020-11-21] MEDS ORDERED: Saline Nasal Spray 44 ML BOTTLE NS PRN (21:03)
[2020-11-21] MEDS ORDERED: Melatonin 3 MG TABLET PO PRN (21:03)
[2020-11-21] MEDS ORDERED: Sennosides/Docusate Sodium TABLET PO PRN (21:03)
[2020-11-21] MEDS: Ipratropium/Albuterol Neb 3 ML IH SCH (22:46)
[2020-11-22 01:26] LABS: Basophils % 0.3 %; Eosinophils # 0.1 K/mcL (0.0-0.6); Eosinophils % 1.1 %; Hemoglobin 10.7 g/dL (12.9-16.9); Lymphocytes # 1.4 K/mcL (0.6-4.6); Lymphocytes % 15.6 %; Mean Corpuscular HGB Conc 31.5 g/dL (31.6-35.5); Mean Corpuscular Hemoglobin 28.9 pg (28.0-33.3); Mean Corpuscular Volume 91.9 fL (83.0-100.0); Mean Platelet Volume 11.5 fL (9.4-12.4); Monocytes # 0.5 K/mcL (0.0-1.3); Monocytes % 5.8 %; Neutrophils # 6.8 K/mcL (1.6-8.9); Platelet Count 239 K/mcL (140-400); Red Cell Distribution Width 14.5 % (11.5-14.5); Segmented Neutrophils % 75.2 %
[2020-11-22 01:34] LABS: INR 1.1
[2020-11-22 01:51] LABS: % Iron Saturation 15 % (20-55); Alanine Aminotransferase 31 Units/L (7-52); Albumin 3.2 g/dL (3.5-5.7); Albumin/Globulin Ratio 1.2 (1.1-2.2); Alkaline Phosphatase 95 Units/L (34-104); Aspartate Amino Transferase 22 Units/L (13-39); BUN/Creatinine Ratio 53 (6-26); Bilirubin,Total 0.3 mg/dL (0.3-1.0); Blood Urea Nitrogen 47 mg/dL (8-23); Calcium 9.7 mg/dL (8.6-10.3); Carbon Dioxide 28 mEq/L (23-29); Chloride 102 mEq/L (98-107); Globulin 2.6 g/dL (2.4-3.5); Glucose 221 mg/dL (70-105); Iron 27 mcg/dL (65-175); Magnesium 1.6 mg/dL (1.6-2.6); Osmolality,Calculated 307 (280-300); Phosphorous 2.7 mg/dL (2.7-4.5); Potassium 3.3 mEq/L (3.5-5.1); Sodium 139 mEq/L (136-145); Total Protein 5.8 g/dL (6.4-8.9); Transferrin 126 mg/dL (203-362); eGFR For African Americans > 60 (> 60); eGFR For Non-African Americans > 60 (> 60)
[2020-11-22 02:06] LABS: Ferritin 202 ng/mL (20-250)
[2020-11-22 02:14] LABS: Folate > 22.3 ng/mL (3.0-16.0); Vitamin B12 430 pg/mL (250-1100)
[2020-11-22 03:08] LABS: Estimated Average Glucose 174 mg/dl; Hemoglobin A1C 7.7 %
[2020-11-22] MEDS: Ipratropium/Albuterol Neb 3 ML IH SCH ×4 (03:43→22:53)
[2020-11-22] MEDS: Insulin LISPRO 300 UNITS/3 ML VIAL SUBQ SCH ×6 (04:21→23:42)
[2020-11-22] MEDS ORDERED: Iron Sucrose Complex 400 MG in 0.9 % Sodium Chloride 250 ML IVPB ONE (07:21)
[2020-11-22] MEDS ORDERED: Docusate Oral Soln 100 MG/10 ML UDC GTUBE PRN (08:07)
[2020-11-22] MEDS ORDERED: Potassium Chloride Elixir 20 MEQ/15 ML UDC GTUBE ONE (08:19)
[2020-11-22] MEDS: Multivitamin Liquid 15 ML UDC GTUBE SCH (08:49)
[2020-11-22] MEDS: Calcium Gluconate 1gm/50mL 1 GM/50 ML BAG IVPB SCH ×2 (08:49→09:55)
[2020-11-22] MEDS: Glycopyrrolate 1 MG TABLET GTUBE SCH ×2 (08:50→20:21)
[2020-11-22] MEDS: Valsartan 160 MG TABLET GTUBE SCH (08:50)
[2020-11-22] MEDS: amLODIPine 5 MG TABLET GTUBE SCH (08:50)
[2020-11-22] MEDS: Chlorhexidine Rinse 15 ML MOUTHWASH MM SCH ×2 (08:50→20:21)
[2020-11-22] MEDS: Artificial Tears SOLN 15 ML BOTTLE BOTH EYES SCH ×2 (08:50→20:36)
[2020-11-22] MEDS ORDERED: MethylPREDNISolone 40 MG/ML VIAL IVP SCH (14:15)
[2020-11-22 16:08] LABS: ABG Base Excess 9 mEq/L (-2 to 3); ABG HCO3 32 mEq/L (21-27); ABG Oxygen Saturation 91 % (95-98); ABG PCO2 39 mmHg (35-45); ABG PH 7.52 pH Units (7.32-7.45); ABG PO2 55 mmHg (85-104); ABG TCO2 34 mEq/L (20-26); Blood Gas Modality ASSIST CONTROL
[2020-11-22] MEDS: BuPROPion XL (24 HR) 150 MG TABLET PO SCH (17:12)
[2020-11-22] MEDS: *HR* Rivaroxaban 10 MG TABLET GTUBE SCH (17:13)
[2020-11-22] MEDS ORDERED: QUEtiapine Fumarate 25 MG TABLET PO SCH (21:00)
[2020-11-22] MEDS: Budesonide/Formoterol 160/4.5 1 PUFF INH IH SCH (22:53)
[2020-11-23 01:27] LABS: Basophils % 0.2 %; Eosinophils # 0.1 K/mcL (0.0-0.6); Eosinophils % 0.9 %; Hematocrit 32.6 % (37.5-50.1); Hemoglobin 10.2 g/dL (12.9-16.9); Immature Granulocytes % 1.8 % (0-4); Lymphocytes % 12.7 %; Mean Corpuscular HGB Conc 31.3 g/dL (31.6-35.5); Mean Corpuscular Hemoglobin 28.5 pg (28.0-33.3); Mean Corpuscular Volume 91.1 fL (83.0-100.0); Mean Platelet Volume 11.7 fL (9.4-12.4); Monocytes # 0.5 K/mcL (0.0-1.3); Monocytes % 6.3 %; Neutrophils # 6.4 K/mcL (1.6-8.9); Platelet Count 224 K/mcL (140-400); Red Blood Count 3.58 M/mcL (4.19-5.50); Red Cell Distribution Width 14.6 % (11.5-14.5); Segmented Neutrophils % 78.1 %; White Blood Count 8.1 K/mcL (4.3-11.1)
[2020-11-23 01:34] LABS: INR 1.2; Prothrombin Time 13.5 Seconds (9.4-12.1)
[2020-11-23 01:45] LABS: Alanine Aminotransferase 29 Units/L (7-52); Albumin 3.1 g/dL (3.5-5.7); Albumin/Globulin Ratio 1.2 (1.1-2.2); Alkaline Phosphatase 87 Units/L (34-104); Aspartate Amino Transferase 18 Units/L (13-39); BUN/Creatinine Ratio 50 (6-26); Bilirubin,Total 0.3 mg/dL (0.3-1.0); Blood Urea Nitrogen 41 mg/dL (8-23); Carbon Dioxide 29 mEq/L (23-29); Chloride 106 mEq/L (98-107); Globulin 2.6 g/dL (2.4-3.5); Glucose 224 mg/dL (70-105); Magnesium 1.7 mg/dL (1.6-2.6); Osmolality,Calculated 313 (280-300); Phosphorous 2.3 mg/dL (2.7-4.5); Potassium 3.5 mEq/L (3.5-5.1); Sodium 143 mEq/L (136-145); Total Protein 5.7 g/dL (6.4-8.9); eGFR For African Americans > 60 (> 60); eGFR For Non-African Americans > 60 (> 60)
[2020-11-23] MEDS: Insulin LISPRO 300 UNITS/3 ML VIAL SUBQ SCH ×7 (03:22→23:57)
[2020-11-23] MEDS: Ipratropium/Albuterol Neb 3 ML IH SCH ×4 (04:19→20:00)
[2020-11-23] MEDS ORDERED: Potassium Phosphate 44 MEQ in 0.9 % Sodium Chloride 250 ML IVPB ONE (07:27)
[2020-11-23] MEDS: MethylPREDNISolone 40 MG/ML VIAL IVP SCH (08:01)
[2020-11-23] MEDS: Chlorhexidine Rinse 15 ML MOUTHWASH MM SCH ×2 (08:01→20:54)
[2020-11-23] MEDS: Multivitamin Liquid 15 ML UDC GTUBE SCH (08:01)
[2020-11-23] MEDS: amLODIPine 5 MG TABLET GTUBE SCH (08:01)
[2020-11-23] MEDS: Valsartan 160 MG TABLET GTUBE SCH (08:01)
[2020-11-23] MEDS: BuPROPion XL (24 HR) 150 MG TABLET PO SCH (08:02)
[2020-11-23] MEDS: Artificial Tears SOLN 15 ML BOTTLE BOTH EYES SCH ×2 (08:02→20:54)
[2020-11-23] MEDS: Glycopyrrolate 1 MG TABLET GTUBE SCH ×2 (08:02→20:54)
[2020-11-23] MEDS: Budesonide/Formoterol 160/4.5 1 PUFF INH IH SCH ×2 (09:08→20:01)
[2020-11-23] MEDS ORDERED: Sennosides/Docusate Sodium TABLET PO PRN (14:46)
[2020-11-23] MEDS: Acetylcysteine 10% 2 ML INHSOL IH SCH ×2 (16:21→20:01)
[2020-11-23] MEDS: *HR* Rivaroxaban 10 MG TABLET GTUBE SCH (18:19)
[2020-11-23] MEDS: Insulin DETEMIR 100 UNIT/ML X5UNITS SUBQ SCH (20:51)
[2020-11-23] MEDS ORDERED: QUEtiapine Fumarate 25 MG TABLET PO SCH (21:00)
[2020-11-24] MEDS: Ipratropium/Albuterol Neb 3 ML IH SCH ×4 (03:51→22:02)
[2020-11-24] MEDS: Acetylcysteine 10% 2 ML INHSOL IH SCH ×3 (03:51→22:02)
[2020-11-24] MEDS: Insulin LISPRO 300 UNITS/3 ML VIAL SUBQ SCH ×6 (04:04→23:52)
[2020-11-24 06:53] LABS: Basophils % 0.2 %; Eosinophils % 0.3 %; Hematocrit 35.8 % (37.5-50.1); Hemoglobin 11.4 g/dL (12.9-16.9); Lymphocytes # 1.1 K/mcL (0.6-4.6); Lymphocytes % 10.4 %; Mean Corpuscular HGB Conc 31.8 g/dL (31.6-35.5); Mean Corpuscular Hemoglobin 28.9 pg (28.0-33.3); Mean Corpuscular Volume 90.6 fL (83.0-100.0); Mean Platelet Volume 11.8 fL (9.4-12.4); Monocytes # 0.6 K/mcL (0.0-1.3); Monocytes % 5.7 %; Neutrophils # 8.8 K/mcL (1.6-8.9); Platelet Count 261 K/mcL (140-400); Red Blood Count 3.95 M/mcL (4.19-5.50); Segmented Neutrophils % 82.4 %; White Blood Count 10.7 K/mcL (4.3-11.1)
[2020-11-24 06:59] LABS: INR 1.1; Prothrombin Time 13.2 Seconds (9.4-12.1)
[2020-11-24 07:18] LABS: Alanine Aminotransferase 39 Units/L (7-52); Albumin 3.6 g/dL (3.5-5.7); Albumin/Globulin Ratio 1.2 (1.1-2.2); Alkaline Phosphatase 106 Units/L (34-104); Aspartate Amino Transferase 27 Units/L (13-39); BUN/Creatinine Ratio 46 (6-26); Bilirubin,Total 0.3 mg/dL (0.3-1.0); Blood Urea Nitrogen 42 mg/dL (8-23); Calcium 10.5 mg/dL (8.6-10.3); Carbon Dioxide 29 mEq/L (23-29); Chloride 103 mEq/L (98-107); Globulin 2.9 g/dL (2.4-3.5); Glucose 283 mg/dL (70-105); Magnesium 1.8 mg/dL (1.6-2.6); Osmolality,Calculated 315 (280-300); Phosphorous 3.2 mg/dL (2.7-4.5); Potassium 3.6 mEq/L (3.5-5.1); Sodium 142 mEq/L (136-145); Total Protein 6.5 g/dL (6.4-8.9); eGFR For African Americans > 60 (> 60); eGFR For Non-African Americans > 60 (> 60)
[2020-11-24] MEDS ORDERED: Psyllium 1 PACKET POWD.PACK GTUBE SCH (09:00)
[2020-11-24] MEDS: BuPROPion XL (24 HR) 150 MG TABLET PO SCH (09:23)
[2020-11-24] MEDS: Glycopyrrolate 1 MG TABLET GTUBE SCH ×2 (09:24→20:14)
[2020-11-24] MEDS: amLODIPine 5 MG TABLET GTUBE SCH (09:24)
[2020-11-24] MEDS: Valsartan 160 MG TABLET GTUBE SCH (09:24)
[2020-11-24] MEDS: Chlorhexidine Rinse 15 ML MOUTHWASH MM SCH ×2 (09:25→20:13)
[2020-11-24] MEDS: MethylPREDNISolone 40 MG/ML VIAL IVP SCH (09:25)
[2020-11-24] MEDS: Artificial Tears SOLN 15 ML BOTTLE BOTH EYES SCH ×2 (09:26→20:13)
[2020-11-24] MEDS: Multivitamin Liquid 15 ML UDC GTUBE SCH (09:27)
[2020-11-24] MEDS: Budesonide/Formoterol 160/4.5 1 PUFF INH IH SCH ×2 (11:05→22:02)
[2020-11-24] MEDS ORDERED: Acetaminophen 325 MG TABLET PO PRN (11:47)
[2020-11-24] MEDS ORDERED: traZODone 50 MG TABLET PO PRN (13:03)
[2020-11-24] MEDS ORDERED: Isovue-370 500 ML BOTTLE IVP ONE (13:05)
[2020-11-24 17:03] LABS: Bilirubin,Urine Negative (Negative); Blood,Urine Trace (Negative); Clarity,Urine Turbid (Clear); Color,Urine Light-Yellow (Yellow); Glucose,Urine (UA) >=1000 mg/dL (Normal); Ketones,Urine Negative (Negative); Leukocyte Esterase,Urine Negative (Negative); Nitrite,Urine Negative (Negative); Protein,Urine 100 mg/dL (Neg-Trace); Specific Gravity,Urine 1.022 (1.010-1.025); Squamous Epithelial Cell,Urine Few per hpf (None-Few); Urobilinogen,Urine Normal (Normal)
[2020-11-24] MEDS: *HR* Rivaroxaban 10 MG TABLET GTUBE SCH (18:07)
[2020-11-24] MEDS: Insulin DETEMIR 100 UNIT/ML X5UNITS SUBQ SCH (19:58)
[2020-11-24] MEDS: Melatonin 3 MG TABLET GTUBE PRN (20:16)
[2020-11-24] MEDS: Ampicillin/Sulbactam 3,000 MG in 0.9 % Sodium Chloride Mini Bag 100 ML IVPB SCH (23:51)
[2020-11-25 01:14] LABS: Hematocrit 33.8 % (37.5-50.1); Hemoglobin 10.7 g/dL (12.9-16.9); Mean Corpuscular HGB Conc 31.7 g/dL (31.6-35.5); Mean Corpuscular Hemoglobin 28.8 pg (28.0-33.3); Mean Corpuscular Volume 91.1 fL (83.0-100.0); Mean Platelet Volume 11.5 fL (9.4-12.4); Platelet Count 268 K/mcL (140-400); Red Blood Count 3.71 M/mcL (4.19-5.50); Red Cell Distribution Width 14.8 % (11.5-14.5); White Blood Count 13.8 K/mcL (4.3-11.1)
[2020-11-25 01:37] LABS: BUN/Creatinine Ratio 50 (6-26); Blood Urea Nitrogen 45 mg/dL (8-23); Calcium 9.6 mg/dL (8.6-10.3); Carbon Dioxide 27 mEq/L (23-29); Chloride 103 mEq/L (98-107); Glucose 307 mg/dL (70-105); Magnesium 1.6 mg/dL (1.6-2.6); Osmolality,Calculated 317 (280-300); Phosphorous 3.4 mg/dL (2.7-4.5); Potassium 3.3 mEq/L (3.5-5.1); Sodium 142 mEq/L (136-145); eGFR For African Americans > 60 (> 60); eGFR For Non-African Americans > 60 (> 60)
[2020-11-25] MEDS: Insulin LISPRO 300 UNITS/3 ML VIAL SUBQ SCH ×5 (03:28→21:05)
[2020-11-25] MEDS: Ipratropium/Albuterol Neb 3 ML IH SCH ×4 (03:52→22:49)
[2020-11-25] MEDS: Ampicillin/Sulbactam 3,000 MG in 0.9 % Sodium Chloride Mini Bag 100 ML IVPB SCH ×4 (05:23→23:53)
[2020-11-25] MEDS: Budesonide/Formoterol 160/4.5 1 PUFF INH IH SCH ×2 (08:10→22:50)
[2020-11-25] MEDS: Acetylcysteine 10% 2 ML INHSOL IH SCH ×3 (08:11→22:50)
[2020-11-25] MEDS: Glycopyrrolate 1 MG TABLET GTUBE SCH ×2 (09:32→21:08)
[2020-11-25] MEDS: Chlorhexidine Rinse 15 ML MOUTHWASH MM SCH ×2 (09:32→21:08)
[2020-11-25] MEDS: Valsartan 160 MG TABLET GTUBE SCH (09:32)
[2020-11-25] MEDS: Multivitamin Liquid 15 ML UDC GTUBE SCH (09:33)
[2020-11-25] MEDS: amLODIPine 5 MG TABLET GTUBE SCH (09:33)
[2020-11-25] MEDS: Artificial Tears SOLN 15 ML BOTTLE BOTH EYES SCH ×2 (09:33→21:08)
[2020-11-25] MEDS: BuPROPion XL (24 HR) 150 MG TABLET PO SCH (09:35)
[2020-11-25] MEDS ORDERED: Docusate Oral Soln 100 MG/10 ML UDC GTUBE PRN (10:10)
[2020-11-25] MEDS ORDERED: traZODone 50 MG TABLET GTUBE PRN (10:15)
[2020-11-25 13:34] LABS: Adenovirus Not Detected (Not Detect); Bordetella Pertussis Not Detected (Not Detect); Chlamydophila pneumoniae Not Detected (Not Detect); Coronavirus 229E Not Detected (Not Detect); Coronavirus HKU1 Not Detected (Not Detect); Coronavirus NL63 Not Detected (Not Detect); Coronavirus OC43 Not Detected (Not Detect); Human Metapneumovirus Not Detected (Not Detect); Human Rhinovirus/Enterovirus Not Detected (Not Detect); Influenza A Subtype 2009 H1 Not Detected (Not Detect); Influenza B Not Detected (Not Detect); Mycoplasma pneumoniae Not Detected (Not Detect); Parainfluenza Virus 1 Not Detected (Not Detect); Parainfluenza Virus 2 Not Detected (Not Detect); Parainfluenza Virus 3 Not Detected (Not Detect); Parainfluenza Virus 4 Not Detected (Not Detect); Respiratory Syncytial Virus Not Detected (Not Detect); SARS-CoV-2 Not Detected (Not Detect)
[2020-11-25] MEDS: Insulin DETEMIR 100 UNIT/ML X5UNITS SUBQ SCH (21:06)
[2020-11-25] MEDS: Melatonin 3 MG TABLET GTUBE PRN (21:09)
[2020-11-26] MEDS: Insulin LISPRO 300 UNITS/3 ML VIAL SUBQ SCH ×4 (00:26→12:06)
[2020-11-26] MEDS: Ipratropium/Albuterol Neb 3 ML IH SCH ×2 (03:45→10:00)
[2020-11-26 04:08] LABS: Hemoglobin 11.2 g/dL (12.9-16.9); Mean Corpuscular Hemoglobin 29.1 pg (28.0-33.3); Mean Corpuscular Volume 90.9 fL (83.0-100.0); Platelet Count 265 K/mcL (140-400); Red Blood Count 3.85 M/mcL (4.19-5.50); Red Cell Distribution Width 15.1 % (11.5-14.5); White Blood Count 12.9 K/mcL (4.3-11.1)
[2020-11-26 04:28] LABS: BUN/Creatinine Ratio 49 (6-26); Blood Urea Nitrogen 42 mg/dL (8-23); Calcium 9.5 mg/dL (8.6-10.3); Carbon Dioxide 31 mEq/L (23-29); Chloride 105 mEq/L (98-107); Glucose 139 mg/dL (70-105); Magnesium 1.8 mg/dL (1.6-2.6); Osmolality,Calculated 311 (280-300); Phosphorous 3.1 mg/dL (2.7-4.5); Potassium 3.3 mEq/L (3.5-5.1); Sodium 144 mEq/L (136-145); eGFR For African Americans > 60 (> 60); eGFR For Non-African Americans > 60 (> 60)
[2020-11-26] MEDS: Ampicillin/Sulbactam 3,000 MG in 0.9 % Sodium Chloride Mini Bag 100 ML IVPB SCH ×2 (05:38→11:04)
[2020-11-26] MEDS ORDERED: *HR* Propofol 200 MG/20 ML VIAL IVP ONE (07:54)
[2020-11-26] MEDS ORDERED: Ondansetron 4 MG/2 ML VIAL ONE (07:54)
[2020-11-26] MEDS ORDERED: Lidocaine -MPF 2% 2 ML VIAL ONE (07:54)
[2020-11-26] MEDS: amLODIPine 5 MG TABLET GTUBE SCH (09:50)
[2020-11-26] MEDS: Valsartan 160 MG TABLET GTUBE SCH (09:50)
[2020-11-26] MEDS: Chlorhexidine Rinse 15 ML MOUTHWASH MM SCH (09:50)
[2020-11-26] MEDS: Glycopyrrolate 1 MG TABLET GTUBE SCH (09:51)
[2020-11-26] MEDS: Budesonide/Formoterol 160/4.5 1 PUFF INH IH SCH (10:01)
[2020-11-26] MEDS: Acetylcysteine 10% 2 ML INHSOL IH SCH (10:01)
[2020-11-26] MEDS: Multivitamin Liquid 15 ML UDC GTUBE SCH (10:12)
[2020-11-26] MEDS: Artificial Tears SOLN 15 ML BOTTLE BOTH EYES SCH (10:13)
[2020-11-26 14:36] VITALS: BP 138/60
[2020-11-26 15:30] LABS: Source of Body Fluid RIGHT LOWER LOBELUNG
[2020-11-26 18:57] LABS: Appearance of Body Fluid Hazy (Clear); Volume of Body Fluid 15 mL
== END 2020-11-26 15:29 | DRG 4 ==
LOC: EMEROOARM 22:48 → 2NENU 22:48 → SUATTDRO 11-13 20:28 → ICNU 11-19 16:42 → 2NNU 11-20 21:30
PROVIDERS: ADMIT Student in an Organized Health Care Education/Training Program; ATTEND Internal Medicine